=== PATIENT | female | born 1970 | race Caucasian/White ===

== ENCOUNTER 2025-03-21 17:27 | Emergency (ER) | payer BC ==
[2025-03-21] MEDS ORDERED: Ondansetron PF 4 MG/2 ML Vial ONE (17:32)
[2025-03-21] MEDS ORDERED: CEFAZOLIN 2 GM VIAL ONE (17:33)
[2025-03-21] MEDS ORDERED: Boostrix 0.5 ML (Tdap) VIAL (>/=7 yrs of age) ONE (17:33)
[2025-03-21] MEDS ORDERED: Ketorolac Tromethamine 30 MG (1 mL) VIAL ONE (20:50)
== END 2025-03-21 21:00 | disposition short-term general hospital (02) ==
LOC: ERS 17:27
DX: S62.325B Displaced fracture of shaft of fourth metacarpal bone, left hand, initial encounter for open fracture (principal); S62.617B Displaced fracture of proximal phalanx of left little finger, initial encounter for open fracture; I10 Essential (primary) hypertension; E78.5 Hyperlipidemia, unspecified; Z55.6 Problems related to health literacy; Z23 Encounter for immunization; Z79.899 Other long term (current) drug therapy; V29.598A Other motorcycle passenger injured in collision with other motor vehicles in traffic accident, initial encounter
CPT/HCPCS: 71045; 90471; 90715; 96365; 96375; J1885